=== PATIENT | female | born 1990 | race Hispanic/Latino ===

== ENCOUNTER 2017-04-07 23:54 | Emergency (ER) | payer SELFPAY ==
[2017-04-08] MEDS ORDERED: Ketorolac Tromethamine 30 MG/ML VIAL ONE (02:32)
--- NOTE | 2017-04-08 08:09 | RAD ---
RIGHT KNEE: Four views. HISTORY: Injured right knee playing basketball with pain. FINDINGS: Joint spaces are normal. No fracture. Fullness in the suprapatellar region suggests a small joint e ffusion. IMPRESSION: No acute fracture. Question small joint effusion. POS: [facility]
== END 2017-04-08 02:52 | disposition home or self-care (01) ==
LOC: ERS 23:54
DX: M25.561 Pain in right knee (principal); E11.9 Type 2 diabetes mellitus without complications; Z79.84 Long term (current) use of oral hypoglycemic drugs; Z79.899 Other long term (current) drug therapy
CPT/HCPCS: 96372; J1885